=== PATIENT | male | born 2000 | race Caucasian/White ===

== ENCOUNTER 2021-07-31 22:33 | Emergency (ER) | payer MEDICAID, SELFPAY ==
--- NOTE | 2021-07-31 22:36 | XRR_ITS ---
PROCEDURE INFORMATION: Exam: XR Right Foot Exam date and time: 07/31/2021 10:36 PM Age: 21 years old Clinical indication: Pain and injury or trauma; Fall; Blunt trauma and swelling (edema); Foot; Right; Additional info: Right foot injury TECHNIQUE: Imaging protocol: XR Right foot. Views: 3 or more views. COMPARISON: No relevant prior studies available. FINDINGS: Bones/joints: Normal. Soft tissues: Normal. XR/XR foot RT min 3V* [id number] IMPRESSION: No acute findings in the bones of the foot.
--- NOTE | 2021-07-31 22:36 | XRR_ITS ---
PROCEDURE INFORMATION: Exam: XR Right Ankle Exam date and time: 07/31/2021 10:36 PM Age: 21 years old Clinical indication: Injury or trauma; Fall; Blunt trauma and swelling (edema); Ankle; Right; Additional info: Injury with pain TECHNIQUE: Imaging protocol: XR Right ankle. Views: 3 or more views. COMPARISON: No relevant prior studies available. FINDINGS: Bones/joints: Distal fibular metaphyseal oblique nondisplaced subtle fracture suspected on the AP view with overlying soft tissue swelling. Os trigonum, a normal variant. Soft tissues: See Bones/joints finding. XR/XR ankle RT min 3V* [id number] IMPRESSION: Distal fibular metaphyseal oblique nondisplaced subtle fracture suspected on the AP view with overlying soft tissue swelling.
[2021-07-31 22:58] VITALS: BP 129/88; PULSE 99; RESP 18; TEMP 36.5; O2SAT 97; BMI 21.9
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
[2021-08-01] MEDS: HYDROcodone-acetaminophen 5-325 mg Tablet 1 TAB PO (04:15)
[2021-08-01 04:16] VITALS: BP 132/78; PULSE 78; RESP 16; O2SAT 98
--- NOTE | 2021-08-01 09:21 | DCPLANNER ---
Addendum entered by Milagro Tariq 08/02/21 11:59: Patient had a follow up appointment scheduled for 08.01.[address] Hinton at ortho- patient did attend appointment. Original Note: Patient had message to schedule a follow up appointment for patient with ortho. volunteer services manager emailed patients information to both Sigrid and Chichi at ortho. Patients information will be printed and reviewed. Clinic will call patient with appointment information.
== END 2021-08-01 04:18 | disposition home or self-care (01) ==
PROVIDERS: Emergency Provider Physician Assistant
DX: S82.831A Other fracture of upper and lower end of right fibula, initial encounter for closed fracture (principal); V48.6XXA Car passenger injured in noncollision transport accident in traffic accident, initial encounter
CPT/HCPCS: 73610; 73630; 99283

== ENCOUNTER 2021-08-01 14:22 | Outpatient (CLI) | payer MEDICAID, SELFPAY | END 2021-08-01 14:23 | disposition home or self-care (01) | LOC: SPT 14:22 | PROVIDERS: Visit Provider Podiatrist Foot & Ankle Surgery | DX: Z46.89 Encounter for fitting and adjustment of other specified devices (principal); S82.831D Other fracture of upper and lower end of right fibula, subsequent encounter for closed fracture with routine healing; X58.XXXD Exposure to other specified factors, subsequent encounter | CPT/HCPCS: 97760; L4361 ==

== ENCOUNTER → 2021-08-25 15:20 | Outpatient (BNVA) | payer MEDICAID, SELFPAY | PROVIDERS: Visit Provider Podiatrist Foot & Ankle Surgery | DX: M25.571 Pain in right ankle and joints of right foot | CPT/HCPCS: 73610 ==